=== PATIENT | female | born 1965 | race Caucasian/White ===

== ENCOUNTER 2019-10-10 02:03 | Emergency (ER) | payer OTHER ==
[~2019-10-10] VITALS: Ht 165.1 cm; Wt 69.9 kg
--- NOTE | 2019-10-10 02:09 | NUR ---
CALLED PT TO BE TRIAGED, NO ANSWER
--- NOTE | 2019-10-10 02:35 | NUR ---
FATUMA C/O "HAVING NECK PAIN, L SHOULDER PAIN, AND BACK PAIN AFTER A FALL X10 DAYS AGO" -LOC. -SOB AOX4. VSS.
[2019-10-10 05:07] VITALS: BP 131/91
== END 2019-10-10 05:07 | disposition home or self-care (01) ==
LOC: ER 02:08
DX: S83.8X2A Sprain of other specified parts of left knee, initial encounter (principal); S83.8X1A Sprain of other specified parts of right knee, initial encounter; S33.6XXA Sprain of sacroiliac joint, initial encounter; M25.512 Pain in left shoulder; M25.511 Pain in right shoulder; M54.2 Cervicalgia; G62.9 Polyneuropathy, unspecified; K21.9 Gastro-esophageal reflux disease without esophagitis; D50.9 Iron deficiency anemia, unspecified; Z86.718 Personal history of other venous thrombosis and embolism; Z88.1 Allergy status to other antibiotic agents; Z88.0 Allergy status to penicillin; Z88.6 Allergy status to analgesic agent; Z88.8 Allergy status to other drugs, medicaments and biological substances; Z88.5 Allergy status to narcotic agent; W18.39XA Other fall on same level, initial encounter; Y93.89 Activity, other specified; Y92.89 Other specified places as the place of occurrence of the external cause; Y99.8 Other external cause status
CPT/HCPCS: 72220-TC; 73030-TC; 73564-TC

== ENCOUNTER 2020-07-30 19:38 | Inpatient (IN) | payer OTHER ==
[~2020-07-30] VITALS: Ht 160 cm; Wt 67.1 kg
--- NOTE | 2020-07-30 19:46 | NUR ---
PT AAOX4. BIBRA 881 C/O GEN ABD PAIN X3 DAYS +N/V. PT PLACED IN BED 3 ON MONITOR AND PULSE OX. AWAITING MD FOR EVAL. PT AMBULATED TO THE RESTROOM TO PROVIDE URINE SAMPLE USING WALKER.
[2020-07-30] MEDS ORDERED: ONDANSETRON HCL/PF 4 MG/2 ML VIAL ONE (19:59)
[2020-07-30] MEDS ORDERED: IV NS 0.9% 1,000 ML BAG IV ONE (20:00)
[2020-07-30] MEDS ORDERED: ONDANSETRON HCL/PF 4 MG/2 ML VIAL IVP ONE (20:00)
[2020-07-30 20:19] LABS: BASOPHILS % (AUTO) 0.6 % (0.0-2.0); EOSINOPHILS % (AUTO) 0.1 % (0.0-6.0); HEMATOCRIT 41 % (33-45); HEMOGLOBIN 13.5 g/dL (11.5-14.8); LYMPHOCYTES # (AUTO) 0.6 /CMM (0.8-4.8); LYMPHOCYTES % (AUTO) 8.2 % (20.0-44.0); MEAN CORPUSCULAR HGB CONC 33 g/dl (31.0-36.0); MEAN CORPUSCULAR VOLUME 88 fL (82-100); MONOCYTES # (AUTO) 0.3 /CMM (0.1-1.30); MONOCYTES % (AUTO) 4.8 % (2.0-12.0); NEUTROPHILS # (AUTO) 6.3 /CMM (1.8-8.9); NEUTROPHILS % (AUTO) 86.3 % (43.0-81.0); PLATELET COUNT (AUTO) 244 /CMM (150-450); RED BLOOD CELL COUNT(AUTO) 4.68 MIL/uL (4.0-5.2); WHITE BLOOD COUNT (AUTO) 7.3 K/uL (4.3-11.0)
[2020-07-30 20:23] LABS: APPEARANCE,URINE Clear (CLEAR); BILIRUBIN,URINE SMALL (NEGATIVE); BLOOD, URINE Negative Ery/uL (NEGATIVE); COLOR,URINE Yellow (YELLOW); KETONES,URINE 80 (NEGATIVE); LEUKOCYTE ESTERASE ,URINE Negative (NEGATIVE); NITRITE, URINE Negative (NEGATIVE); PH,URINE >9.0 (5.0-8.0); PROTEIN,URINE 30 mg/dl (NEGATIVE); UGLUCOSE Negative (NEGATIVE)
[2020-07-30 20:27] LABS: BACTERIA,URINE Rare /HPF (None Seen); RBC,URINE NONE SEEN /HPF (0-2); SQUAMOUS EPITHELIAL CELL,UR Few /HPF (None Seen); WBC,URINE NONE SEEN /HPF (0-3)
[2020-07-30 20:32] LABS: ALBUMIN 4.1 g/dL (3.4-5.0); BILIRUBIN,DIRECT 0.2 mg/dL (0.0-0.2); BILIRUBIN,TOTAL 0.7 mg/dL (0.2-1.0); CALCIUM, SERUM 9.5 mg/dL (8.5-10.1); CREATININE 0.9 mg/dL (0.6-1.3); POTASSIUM 3.8 mmol/L (3.5-5.1); TOTAL PROTEIN, SERUM 7.6 g/dL (6.4-8.2)
--- NOTE | 2020-07-30 21:16 | NUR ---
CALLED MARIA ESTHER
[2020-07-30] MEDS ORDERED: MORPHINE SULFATE INJ 2 MG/ML DISP.SYRIN IV ONE (21:30)
[2020-07-30] MEDS ORDERED: MORPHINE SULFATE INJ 4 MG/ML DISP.SYRIN ONE (21:55)
--- NOTE | 2020-07-30 21:59 | NUR ---
PT AMBULATED TO THE RESTROOM
--- NOTE | 2020-07-30 22:07 | NUR ---
CALLED MARIA ESTHER AGAIN REGARDING CT
--- NOTE | 2020-07-30 22:35 | NUR ---
PT STATED SHE DOES NOT WANT AN NG TUBE. AWARE.
--- NOTE | 2020-07-30 23:09 | NUR ---
AMBULATED TO THE RESTROOM USING WALKER.
--- NOTE | 2020-07-30 23:26 | NUR ---
SPOKE TO JOSE G FROM [facility], STATED FAX FACESHEET AND CLINICALS TO [phone]
[2020-07-30] MEDS ORDERED: MAG HYDROX/AL HYDROX/SIMETH 30 ML UDC PO PRN (23:30)
[2020-07-30] MEDS ORDERED: ACETAMINOPHEN 650 MG/SUPP.RECT RC PRN (23:30)
[2020-07-30] MEDS ORDERED: Z GUARD REMEDY 2 OZ OINT TP PRN (23:30)
[2020-07-30] MEDS ORDERED: MAGNESIUM HYDROXIDE 30 ML UDC PO PRN (23:30)
--- NOTE | 2020-07-30 23:32 | NUR ---
FAXED FACESHEET AND CLINICALS
--- NOTE | 2020-07-30 23:59 | NUR ---
REPORT GIVEN TO PHILLIP RAZA FOR DEANDRE
[2020-07-31] MEDS ORDERED: ONDANSETRON HCL/PF 4 MG/2 ML VIAL IV ONE
[2020-07-31 00:30] VITALS: BP_SYST 110; BP_DIAS 70; BP_DIAS 75
--- NOTE | 2020-07-31 00:30 | NUR ---
MS/RN OPENING NOTES NEW ADMISSION RECEIVED PATIENT ON A GURNEY ARRIVED FROM ER BY ATTENDANT, ALERT X 3, RESPIRATIONS EVEN AND UNLABORED, ABLE TO VERBALIZED NEEDS, GUARDING, GRIMACE, MOANING AND CRYING, , SEVERE PAIN 9/10. WITH N/V. FREQUENT URINATION AND BED SIDE COMMODE PROVIDED , BED LOCKED, BELONGINGS CHECKED WITH OWN WALKER AND CANE, REFUSE TO HAVE NGT AWARE, NPO DIET DX WITH SBO. IV FLUIDS ORDERED, RIGHT AC GAUGE 20 PATENT, INSTUCTED TO KEEP IT STRAIGHT AND NOT BEND, ROOM ORIENTATION PROVIDED. WILL MONITOR.
--- NOTE | 2020-07-31 00:30 | NUR ---
SPOKE TO PT REGARDING MED LIST. PT STATED SHE DOES NOT RECALL.
[2020-07-31] MEDS: ONDANSETRON HCL/PF 4 MG/2 ML VIAL IVP PRN ×2 (01:02→10:18)
[2020-07-31] MEDS: IV NS 0.9% 1,000 ML IV PRN ×2 (01:02→21:56)
[2020-07-31] MEDS: MORPHINE SULFATE INJ 2 MG/ML DISP.SYRIN IV PRN ×6 (01:21→22:03)
--- NOTE | 2020-07-31 05:41 | NUR ---
MS/RN NOTES PATIENT WITH SEVERE PAIN, MOANING AND CRYING, PAIN MEDICATION IV MORPHINE 1 MG/0.5ML GIVEN TO MONITOR RELIEF OF PAIN.
[2020-07-31 06:39] LABS: BASOPHILS % (AUTO) 0.2 % (0.0-2.0); EOSINOPHILS % (AUTO) 0.1 % (0.0-6.0); HEMATOCRIT 40 % (33-45); HEMOGLOBIN 13.2 g/dL (11.5-14.8); LYMPHOCYTES # (AUTO) 0.8 /CMM (0.8-4.8); LYMPHOCYTES % (AUTO) 11.5 % (20.0-44.0); MEAN CORPUSCULAR HGB CONC 33 g/dl (31.0-36.0); MEAN CORPUSCULAR VOLUME 87 fL (82-100); MONOCYTES # (AUTO) 0.5 /CMM (0.1-1.30); MONOCYTES % (AUTO) 7.4 % (2.0-12.0); NEUTROPHILS # (AUTO) 5.5 /CMM (1.8-8.9); NEUTROPHILS % (AUTO) 80.8 % (43.0-81.0); PLATELET COUNT (AUTO) 229 /CMM (150-450); RED BLOOD CELL COUNT(AUTO) 4.61 MIL/uL (4.0-5.2); WHITE BLOOD COUNT (AUTO) 6.9 K/uL (4.3-11.0)
[2020-07-31 06:47] LABS: CALCIUM, SERUM 8.7 mg/dL (8.5-10.1); CREATININE 0.8 mg/dL (0.6-1.3); POTASSIUM 3.6 mmol/L (3.5-5.1)
--- NOTE | 2020-07-31 06:55 | NUR ---
306-2 MS/RN NOTES ATTENDED ALL NEEDS, SLEPT FEW HOURS, ON ROOM AIR BREATHING EVEN AND UNLABORED, ON PAIN MANAGEMENT MONITORING, BED LOCKED, MONITORED, ON NPO STATUS, WILL ENDORSE TO AM RN FOR DEANDRE.
--- NOTE | 2020-07-31 07:08 | NUR ---
patient had a bowel movement but hard and request a suppository. to follow up.
[2020-07-31 07:14] LABS: THYROID STIMULATING HORMONE 0.851 uIU/mL (0.358-3.74)
--- NOTE | 2020-07-31 08:00 | NUR ---
MS/RN AM OPENING NOTES RECEIVED PATIENT ALERT X 3, RESPIRATIONS EVEN AND UNLABORED, ABLE TO VERBALIZE NEEDS, GUARDING, GRIMACE, MOANING AND CRYING, , SEVERE PAIN 07/23. PAIN MANAGEMENT PROVIDED NEEDED. NO C/O N/V. FREQUENT URINATION AND BED SIDE COMMODE PROVIDED , BED LOCKED, OWNS WALKER AND CANE, REFUSE TO HAVE NGT AWARE, NPO DIET DX WITH SBO. IV FLUIDS NS AT 75 ML/HR INFUSING WELL, RIGHT AC GAUGE 20 PATENT, INSTRUCTED TO KEEP IT STRAIGHT AND NOT BEND, CALL LIGHT PLACED WITHIN REACH. WE WILL MONITOR.
[2020-07-31 08:18] VITALS: BP 56/85
[2020-07-31] MEDS ORDERED: FOLI0.4T2 PO (08:54)
[2020-07-31] MEDS ORDERED: GABA-532 PO (08:54)
[2020-07-31] MEDS ORDERED: CHOL100040 PO (08:54)
[2020-07-31] MEDS ORDERED: APIX2.5T PO (08:54)
[2020-07-31] MEDS ORDERED: PANT40TA49 PO (08:54)
[2020-07-31] MEDS ORDERED: TRAM50TA2 PO (08:54)
[2020-07-31] MEDS ORDERED: CALC500T52 PO (08:54)
[2020-07-31] MEDS: PANTOPRAZOLE 40 MG VIAL IV SCH (08:54)
--- NOTE | 2020-07-31 09:26 | NUR ---
PT REFUSED SMALL BOWEL FOLLOW THROUGH PROCEDURE INSPITE OF EXPLAINING THE RISKS AND PROCEDURES.PT STATED THAT SHE HAD FEW YEARS AGO AND DIDN'T FIND ANYTHING. WILL NOTIFY .
--- NOTE | 2020-07-31 09:30 | NUR ---
PATIENT REFUSED FOR SMALL BOWEL FOLLOW THROUGH, RN AWARE
[2020-07-31] MEDS ORDERED: MINERAL OIL 133 ML (PYXIS) 1 EA ENEMA RC PRN (15:00)
--- NOTE | 2020-07-31 15:00 | NUR ---
INFORMED WHIT JOHN THAT PT'S MORPHINE 1MG PRN ISN'T EFFECTIVE.
[2020-07-31 16:03] VITALS: BP 143/85
--- NOTE | 2020-07-31 16:13 | NUR ---
PATIENT REFUSED AN ECHOCARDIOGRAM AND WANTS TO DO THE TEST TOMORROW. RN WAS INFORMED.
--- NOTE | 2020-07-31 16:33 | NUR ---
PT REFUSED ECHOCARDIOGRAM INSPITE OF EXPLAINING ITS RISKS AND BENEFITS. EVEN IF PT WAS RECEIVING MORPHINE SULFATE 1 MG IV Q 4 HRS PT CONTINUES TO C/O OF ABDOMINAL PAIN.DR WEST IS HERE TO CHECK ON THE PT.
--- NOTE | 2020-07-31 16:42 | NUR ---
DR WEST STATED THAT THE FLEET MINERAL OIL ENEMA WILL BE USELESS AND THE SMALL BOWEL FOLLOW THROUGH PROCEDURE IS MUCH BETTER. CALLED RADIOLOGY AND THEY STATED THAT THE RADIOLOGIST IS ALREADY GONE FOR THE DAY-WILL INFORM DR WEST.
--- NOTE | 2020-07-31 16:49 | NUR ---
NOTIFIED DR WEST REGARDING RADIOLOGIST BEING GONE FOR THE DAY,DR WEST STATED THAT THE SMALL BOWEL FOLLOW THROUGH CAN BE DONE IN AM AND THAT THE FLEET MINERAL OIL ENEMA IS USELESS.THE SMALL BOWEL FOLLOW THROUGH IS MORE EFFECTIVE,PT MADE AWARE WHO STATED THAT SHE WILL AGREE TO HAVE THE SMALL BOWEL FOLLOW THROUGH TOMORROW AM.
--- NOTE | 2020-07-31 19:30 | NUR ---
MS RN RECEIVE PT IN BED A/O X4 FOR SMALL BOWEL FOLLOW TROUGH TOMORROW AM STABLE AND NOT IN DISTRESS, SAFETY MEASURES AT ALL TIMES. WILL CONT TO MONITOR
[2020-07-31 20:00] VITALS: BP 139/76
--- NOTE | 2020-07-31 20:00 | NUR ---
REFUSED NGT INSERTION DESPITE EXPLAINING RISKS AND BENEFITS OFFERED 3 TIMES PT REFUSED PT VERBALIZED"I DONT WANT NGT"
[2020-07-31 20:39] VITALS: BP 139/76
--- NOTE | 2020-07-31 22:04 | NUR ---
prn morphine: pt c/o abdl; pain 10/10, sharp stabbing aching pain, requesting for morphine, prn morphine 1mg ivp administered to pt at this time. will continue to monitor and reassess.
[2020-08-01] MEDS: MORPHINE SULFATE INJ 2 MG/ML DISP.SYRIN IV PRN ×5 (02:03→20:54)
[2020-08-01] MEDS: ONDANSETRON HCL/PF 4 MG/2 ML VIAL IVP PRN ×2 (06:10→15:41)
--- NOTE | 2020-08-01 06:35 | NUR ---
MS RAZA PT MONITORED ACCORDINGLY, TOLERATING R.A, MAINTAINS NPO, FOR SMALL BOWEL TROUGH, PT SLEPT WELL, NEEDS ATTENDED AND ANTICIPATED, KEPT CLEAN, DRY AND COMFORTABLE. AM CARE RENDERED, SAFETY MEASURES AT ALL TIMES. WILL ENDORSE TO NEXT SHIFT. Addendum: 08/01/20 at 0641 by UBALDO CAMACHO RN PT STILL REFUSING NGT INSERTION DESPITE EXPLAINING RISKS AND BENEFITS
--- NOTE | 2020-08-01 07:30 | NUR ---
MS RN OPENING NOTE PATIENT IN BED RESTING COMFORTABLY. PATIENT IN NO ACUTE DISTRESS. NO SOB NOTED. PATIENT BREATHING IS EVEN AND UNLABORED. PATIENT MAINTAINED NPO STATUS. PATIENT BED ALARM IS ON. SAFETY PRECAUTIONS IN PLACE. EDUCATED TO USE CALL LIGHT FOR ASSISTANCE. PATIENT BED IS LOCKED AND IN LOWEST POSITION. CALL LIGHT WITHIN REACH. WILL CONTINUE TO MONITOR.
[2020-08-01 07:41] LABS: BASOPHILS % (AUTO) 0.5 % (0.0-2.0); EOSINOPHILS % (AUTO) 0.7 % (0.0-6.0); HEMATOCRIT 38 % (33-45); HEMOGLOBIN 12.4 g/dL (11.5-14.8); LYMPHOCYTES # (AUTO) 0.8 /CMM (0.8-4.8); LYMPHOCYTES % (AUTO) 17.1 % (20.0-44.0); MEAN CORPUSCULAR HGB CONC 32 g/dl (31.0-36.0); MEAN CORPUSCULAR VOLUME 87 fL (82-100); MONOCYTES # (AUTO) 0.3 /CMM (0.1-1.30); MONOCYTES % (AUTO) 7.2 % (2.0-12.0); NEUTROPHILS # (AUTO) 3.4 /CMM (1.8-8.9); NEUTROPHILS % (AUTO) 74.5 % (43.0-81.0); PLATELET COUNT (AUTO) 192 /CMM (150-450); RED BLOOD CELL COUNT(AUTO) 4.39 MIL/uL (4.0-5.2); WHITE BLOOD COUNT (AUTO) 4.5 K/uL (4.3-11.0)
[2020-08-01 07:47] LABS: CALCIUM, SERUM 8.7 mg/dL (8.5-10.1); CREATININE 0.6 mg/dL (0.6-1.3); POTASSIUM 3.6 mmol/L (3.5-5.1)
[2020-08-01 08:00] VITALS: BP 155/72
--- NOTE | 2020-08-01 08:15 | NUR ---
MS RN NOTE PATIENT TEMPERATURE 99.7F. IMPLEMENTED COOLING MEASURES.
[2020-08-01] MEDS: PANTOPRAZOLE 40 MG VIAL IV SCH (08:50)
[2020-08-01] MEDS ORDERED: DIATR MEGLU/DIATRIZOATE SODIUM 120 ML BOTTLE (GASTROGRAPHIN) ONE (09:21)
--- NOTE | 2020-08-01 14:12 | NUR ---
MS RAZA NOTE INFORMED DORA FRANCIS OF SMALL BOWEL FOLLOW THROUGH RESULTS. PER DORA ONEAL PATIENT ON CLEAR LIQUID DIET AND ADVANCE TOLERATED. Addendum: 08/01/20 at 1421 by MIR RINALDI RN INFORMED DORA FRANCIS OF SMALL BOWEL FOLLOW THROUGH RESULTS. PER DORA ONEAL PATIENT ON CLEAR LIQUID DIET AND ADVANCE TOLERATED TO REGULAR DIET.
[2020-08-01] MEDS: IV NS 0.9% 1,000 ML IV PRN (15:50)
[2020-08-01 16:00] VITALS: BP_SYST 124; BP_SYST 125; BP_DIAS 76; BP_DIAS 79
[2020-08-01 18:06] VITALS: BP_SYST 118; BP_SYST 141; BP_DIAS 54; BP_DIAS 70
--- NOTE | 2020-08-01 18:34 | NUR ---
MS RN CLOSING NOTE PATIENT IN BED RESTING COMFORTABLY. PATIENT IN NO ACUTE DISTRESS. NO SOB NOTED. PATIENT BREATHING IS EVEN AND UNLABORED. PATIENT TOLERATED CLEAR LIQUID DIET. PATIENT TEMPERATURE 98.9F, PATIENT REFUSING FURTHER COOLING MEASURES. PATIENT BED ALARM IS ON. SAFETY PRECAUTIONS IN PLACE. PATIENT KEPT CLEAN, DRY, AND COMFORTABLE THROUGHOUT SHIFT. EXPLAINED ALL DUE MEDS. NEEDS AND CONCERNS ADDRESSED. PATIENT BED IS LOCKED AND IN LOWEST POSITION. CALL LIGHT WITHIN REACH. WILL ENDORSE CARE TO PM SHIFT FOR DEANDRE.
--- NOTE | 2020-08-01 19:50 | NUR ---
MS RN RECEIVE PT IN ROOM A/O X 4 SITTING IN THE EDGE OF BED READING BOOK. STABLE AND NOT IN DISTRESS, SAFETY MEASURES AT ALL TIMES. WILL CONT TO MONITOR
[2020-08-01 20:00] VITALS: BP 128/81
--- NOTE | 2020-08-01 20:00 | NUR ---
MS RY TEM[P AT 100.0 COOLING MEASURES PROVIDED, REFUSED TYLENOL AT THIS TIME WILL CONT TO MONITOR
[2020-08-01 20:14] VITALS: BP 128/81
--- NOTE | 2020-08-01 20:30 | NUR ---
RECHECK TEMP NOW AT 98.8 AT THIS TIME. APPEARS NOT IN DISTRESS, CALM
[2020-08-02] MEDS: MORPHINE SULFATE INJ 2 MG/ML DISP.SYRIN IV PRN ×3 (01:17→15:45)
[2020-08-02] MEDS: IV NS 0.9% 1,000 ML IV PRN (06:08)
--- NOTE | 2020-08-02 06:44 | NUR ---
MS RN ASLEEP AND EASILY AWAKEN, ALL NEEDS ATTENDED AND ANTICIPATED, AFEBRILE, KEPT CLEAN, DRY AND COMFORTABLE. AM CARE RENDERED, NO DIARRHEA PT AHD SOFT BOWEL BROWN BOWEL MOVEMENT. SAFETY MEASURES AT ALL TIMES. WILL ENDORSE TO NEXT SHIFT.
--- NOTE | 2020-08-02 07:29 | NUR ---
MS RN OPENING NOTES PATIENT IS AWAKE USING THE BEDSIDE COMMODE. WITH NO SIGNS OF DISTRESS AND SO SOB IN ROOM AIR. IV L AC#22G INTACT. NO COMPLAIN OF PAIN AT THIS TIME. INCENTIVE SPIROMETER AT BEDSIDE. BED IS IN LOW POSITION LOCKED. CALL LIGHT WITHIN REACH. WILL CONTINUE TO MONITOR.
[2020-08-02 08:00] VITALS: BP 133/77
[2020-08-02] MEDS: PANTOPRAZOLE 40 MG VIAL IV SCH (09:10)
[2020-08-02 09:47] VITALS: BP 135/71
[2020-08-02] MEDS: ONDANSETRON HCL/PF 4 MG/2 ML VIAL IVP PRN (10:15)
[2020-08-02 16:00] VITALS: BP 138/86
--- NOTE | 2020-08-02 16:00 | NUR ---
PATIENT REFUSED DISCHARGE PICTURE PF HER OLD LOWER BACK SCAR.
--- NOTE | 2020-08-02 16:01 | NUR ---
RECHECKED TEMP IS 98.6F ORAL.
--- NOTE | 2020-08-02 18:40 | NUR ---
DISCHARGE NOTES PATIENT VITALS ARE WITHIN NORMAL LIMIT, WITH NO SIGNS OF DISTRESS, DENIES SOB AND NO COMPLAIN OF PAIN. DISCHARGE INSTRUCTIONS WERE EXPLAINED TO HER SHE VERBALIZED UNDERSTANDING. BELONGING LIST WAS COMPLETED AND SIGNED SHE REFUSED DISCHARGE PICTURE. IV WAS REMOVED WITH SIGNS OF BLEEDING. LEFT TO THE LOBBY VIA WHEELCHAIR WITH TWO CNAS EMILIA ANGLIN. A VOUCHER FOR TAXI WAS GIVEN TO THE EVENT SPECIALIST. FAMILY IS AWARE OF THE TAXI CHARGING THE FAMILY.
== END 2020-08-02 18:40 | disposition home or self-care (01) | DRG 247 ==
LOC: ER 19:38 → MED 23:49
PROVIDERS: ADMIT Registered Nurse; ATTEND Hospitalist
DX: K56.609 Unspecified intestinal obstruction, unspecified as to partial versus complete obstruction (principal); K56.7 Ileus, unspecified; T40.605A Adverse effect of unspecified narcotics, initial encounter; Y92.9 Unspecified place or not applicable; K21.9 Gastro-esophageal reflux disease without esophagitis; N39.0 Urinary tract infection, site not specified; Z90.49 Acquired absence of other specified parts of digestive tract; K59.09 Other constipation; Z98.890 Other specified postprocedural states; M79.7 Fibromyalgia; G89.29 Other chronic pain; G62.9 Polyneuropathy, unspecified; Z86.718 Personal history of other venous thrombosis and embolism; E66.9 Obesity, unspecified; D50.9 Iron deficiency anemia, unspecified; M19.90 Unspecified osteoarthritis, unspecified site; Z76.5 Malingerer [conscious simulation]
CPT/HCPCS: 36415; 71045-TC; 74250-TC; 80048-TC; 80061-TC; 80076-TC; 81000-TC; 83690-TC; 83735-TC; 84100-TC; 84443-TC; 85025-TC; 85730-TC; 87081-TC; 87086-TC; 87186-TC; 93307-TC; C9113; C9803-CS; G0378; J2270; J2405; J7030; Q9963